=== PATIENT | female | born 1980 | race Caucasian/White ===

== ENCOUNTER 2016-12-07 09:48 | Emergency (ER) | payer MEDICARE, MEDICAID ==
[2016-12-07] MEDS ORDERED: IOPAMIDOL 300 (61%) 150 ML VIAL IV ONE (09:49)
[2016-12-07 10:39] LABS: BASO % 0.1 % (0.2-1.0); HEMATOCRIT 44.7 % (37.0-47.0); HEMOGLOBIN 14.4 gm/l (12.0-16.0); IMM NEUT # 0.3 K/mm3 (0-0.2); IMM NEUT% 1.5 % (0-1); LYMPH % 10.9 % (15-45); MEAN CELL VOLUME 87.1 fl (81.0-99.0); MEAN CORPUSCULAR HEMOGLOBIN 28.1 pg (27.0-31.0); MEAN CORPUSCULAR HGB CONC 32.2 g/dl (33.0-37.0); MEAN PLATELET VOLUME 10.4 fl (7.4-10.4); MONO # 0.6 (0.0-0.8); MONO % 3.4 % (4-12); NEUT % 84.1 % (43-75); PLATELET COUNT 427 K/mm3 (130-400); RED CELL DISTRIBUTION WIDTH 15.7 % (11.5-14.5)
[2016-12-07] MEDS ORDERED: ONDANSETRON 4 MG/2ML 2 ML VIAL ONE (10:51)
[2016-12-07] MEDS ORDERED: LACTATED RINGERS 1,000 ML ONE ×2 (10:52→12:24)
[2016-12-07] MEDS ORDERED: MORPHINE SULFATE 4 MG/ML SYRINGE ONE (10:52)
[2016-12-07 12:20] LABS: ALB/GLOB RATIO 1.3 (>1.0); ALBUMIN 4.4 gm/dL (3.5-5.7); CALCIUM 10.1 mg/dL (8.6-10.3)
[2016-12-07] MEDS ORDERED: PROCHLORPERAZINE 5 MG/ML 2 ML VIAL ONE (12:24)
[2016-12-07] MEDS ORDERED: DIPHENHYDRAMINE HCL 50 MG/1 ML VIAL ONE (12:24)
[2016-12-07] MEDS ORDERED: FENTANYL 100 MCG/2 ML VIAL ONE (12:25)
--- NOTE | 2016-12-07 13:41 | CT ---
CT ABDOMEN AND PELVIS WITH CONTRAST HISTORY: Abdominal pain, nausea and vomiting. TECHNIQUE: Following intravenous administration of 125 mL Isovue-300, contiguous axial images were acquired from the lung bases to the ischial tuberosities. Oral contrast was not administered. COMPARISON: 12/02/2014. FINDINGS: LUNG BASES: No gross airspace consolidation or pleural effusion. LIVER: No focal lesion. Minor fatty infiltration along the falciform ligament. SPLEEN: No focal lesion. Stomach: Moderate hiatal hernia, increased in size over the interval. PANCREAS: No mass effect or inflammatory change. ADRENAL GLANDS: No mass effect. KIDNEYS: Cortical scarring at the right upper renal pole. No focal renal mass effect or collecting system dilatation. GALLBLADDER: Surgically absent. BOWEL: Moderate fecal loading. Limited assessment of the distal colon due to decompression. No abnormal small bowel dilatation. Minor features of sigmoid diverticulosis without diverticulitis. APPENDIX: Not seen. PELVIC ORGANS: No gross mass effect. FREE FLUID: No gross free fluid identified. ABDOMINOPELVIC LYMPH NODES: No abnormally enlarged lymph nodes identified. ABDOMINAL AORTA: Normal caliber. OSSEOUS STRUCTURES: No grossly destructive lesions. SOFT TISSUES: Minimal fatty soft tissue stranding seen at right-sided periumbilical soft tissues. IMPRESSION: 1. Noninflammatory, nonobstructive appearance of bowel. Minor changes of colonic diverticulosis without features of diverticulitis. 2. Status post cholecystectomy and appendectomy. 3. Moderate hiatal hernia, mildly increased in prominence over the interval. 4. Right renal cortical scarring of mild extent. Results were electronically transmitted to the electronic medical record at 12/07/2016 at 1337 hours.
[2016-12-07] MEDS ORDERED: DIAZEPAM 5 MG/ML SYRINGE 2 ML ONE (14:02)
== END 2016-12-07 14:31 | disposition home or self-care (01) ==
LOC: ED 09:48
DX: R10.9 Unspecified abdominal pain (principal); R11.10 Vomiting, unspecified; D72.829 Elevated white blood cell count, unspecified
CPT/HCPCS: 83690; 84703; 85025; 80053; 74177; 96375 ×5; 99284 ×2; 96374; 96361 ×3; J1200; J0780; J3010; J2270; J3360; J2405; J7120 ×2; Q9967

== ENCOUNTER 2017-01-13 09:24 | Emergency (ER) | payer MEDICARE, MEDICAID ==
[2017-01-13] MEDS ORDERED: LORAZEPAM 2 MG/ML 1ML SDV ONE ×2 (09:50→11:01)
[2017-01-13] MEDS ORDERED: ONDANSETRON 4 MG ODT TAB ONE (09:50)
[2017-01-13] MEDS ORDERED: LACTATED RINGERS 1,000 ML ONE (09:54)
[2017-01-13] MEDS ORDERED: ONDANSETRON 4 MG/2ML 2 ML VIAL ONE ×2 (09:54→10:14)
[2017-01-13] MEDS ORDERED: PROMETHAZINE HCL 25 MG/ML VIAL ONE (11:01)
[2017-01-13] MEDS ORDERED: DIPHENHYDRAMINE HCL 50 MG/1 ML VIAL ONE (11:01)
[2017-01-13] MEDS ORDERED: HYDROMORPHONE HCL 0.5 MG/0.5 ML SYRINGE ONE ×2 (11:51→13:40)
[2017-01-13] MEDS ORDERED: HALOPERIDOL LACTATE 5 MG/1 ML AMP ONE (11:51)
[2017-01-13 22:10] LABS: HEMATOCRIT 44.6 % (37.0-47.0); HEMOGLOBIN 14.2 gm/l (12.0-16.0); IMM NEUT% 0.5 % (0-1); MEAN CELL VOLUME 87.1 fl (81.0-99.0); MEAN CORPUSCULAR HEMOGLOBIN 27.7 pg (27.0-31.0); MEAN CORPUSCULAR HGB CONC 31.8 g/dl (33.0-37.0); MEAN PLATELET VOLUME 8.7 fl (7.4-10.4); PLATELET COUNT 504 K/mm3 (130-400); RED CELL DISTRIBUTION WIDTH 15.9 % (11.5-14.5)
[2017-01-13 22:11] LABS: EOS % 1.3 % (0.9-2.9); LYMPH % 55.3 % (15-45); MONO % 7.2 % (4-12)
[2017-01-13 22:12] LABS: ABSOLUTE NEUTROPHIL COUNT 5.3 K/mm3 (1.8-7.7); BAND 0 % (0-10); BASO # 0.1 K/mm3 (0.0-0.2); BASO % 0.7 % (0.2-1.0); BASOPHIL 1 % (0-1); EOS # 0.2 (0.0-0.5); EOSINOPHIL 1 % (1-3); IMM NEUT # 0.1 K/mm3 (0-0.2); LYMPH # 8.4 (1.0-4.8); LYMPHOCYTE 40 % (15-45); MONO # 1.1 (0.0-0.8); MONOCYTE 3 % (4-12); NEUTROPHILS 30 % (43-75); TOTAL CELLS COUNTED 100
[2017-01-13 22:13] LABS: ATYPICAL LYMPHOCYTE 25 %; ORDER PATH REVIEW YES; PLATELET ESTIMATE NORMAL (NORMAL); SPECIFIC GRAVITY 1.015 (1.001-1.030); URINE APPEARANCE CLEAR; URINE COLOR YELLOW; URINE GLUCOSE (UA) NEGATIVE (NEGATIVE); URINE PROTEIN NEGATIVE (NEGATIVE)
[2017-01-13 22:14] LABS: URINE BILIRUBIN NEGATIVE (NEGATIVE); URINE BLOOD NEGATIVE (NEGATIVE); URINE LEUKOCYTE ESTERASE NEGATIVE (NEGATIVE); URINE NITRITE NEGATIVE (NEGATIVE); URINE UROBILINOGEN NEGATIVE (0-1 mg/dl)
[2017-01-13 22:15] LABS: HCG,QUALITATIVE URINE NEGATIVE
[2017-01-13 22:16] LABS: ALB/GLOB RATIO 1.4 (>1.0); ALBUMIN 4.5 gm/dL (3.5-5.7)
== END 2017-01-13 14:04 | disposition home or self-care (01) ==
LOC: ED 09:24
DX: R10.9 Unspecified abdominal pain (principal); R11.2 Nausea with vomiting, unspecified
CPT/HCPCS: 83690; 81025; 85025; 80053; 81003; 96375 ×4; 99283; 96376; 96374; 99284; J2060 ×2; J1200; J1630; J2550; J2405 ×2; J7120; A9270; J1170 ×2

== ENCOUNTER 2017-01-15 07:55 | Emergency (ER) | payer MEDICARE, MEDICAID ==
[2017-01-15] MEDS ORDERED: SODIUM CHLORIDE 0.9% 1,000 ML ONE ×3 (09:10→12:40)
[2017-01-15] MEDS ORDERED: ONDANSETRON 4 MG/2ML 2 ML VIAL ONE (09:10)
[2017-01-15] MEDS ORDERED: MORPHINE SULFATE 4 MG/ML SYRINGE ONE (09:11)
[2017-01-15] MEDS ORDERED: DIPHENHYDRAMINE HCL 50 MG/1 ML VIAL ONE (09:11)
[2017-01-15] MEDS ORDERED: HALOPERIDOL LACTATE 5 MG/1 ML AMP ONE (09:11)
[2017-01-15] MEDS ORDERED: PANTOPRAZOLE SODIUM 40 MG VIAL IV ONE (09:11)
[2017-01-15] MEDS ORDERED: KETOROLAC TROMETHAMINE 30 MG/ML 1 ML VIAL ONE (09:11)
[2017-01-15] MEDS ORDERED: METHYLPRED SOD SUCCINATE 125 MG VIAL ONE (09:11)
[2017-01-15 09:51] LABS: ALB/GLOB RATIO 1.3 (>1.0); CALCIUM 9.3 mg/dL (8.6-10.3)
[2017-01-15 10:54] LABS: ABSOLUTE NEUTROPHIL COUNT 9.1 K/mm3 (1.8-7.7); BASO # 0.1 K/mm3 (0.0-0.2); BASO % 0.6 % (0.2-1.0); EOS # 0.2 (0.0-0.5); EOS % 1.1 % (0.9-2.9); HEMATOCRIT 38.9 % (37.0-47.0); HEMOGLOBIN 12.5 gm/l (12.0-16.0); IMM NEUT # 0.1 K/mm3 (0-0.2); IMM NEUT% 0.8 % (0-1); LYMPH # 3.7 (1.0-4.8); LYMPH % 26.2 % (15-45); MEAN CELL VOLUME 87.4 fl (81.0-99.0); MEAN CORPUSCULAR HEMOGLOBIN 28.1 pg (27.0-31.0); MEAN CORPUSCULAR HGB CONC 32.1 g/dl (33.0-37.0); MEAN PLATELET VOLUME 8.4 fl (7.4-10.4); MONO # 0.9 (0.0-0.8); MONO % 6.2 % (4-12); NEUT % 65.1 % (43-75); PLATELET COUNT 411 K/mm3 (130-400); RED CELL DISTRIBUTION WIDTH 15.5 % (11.5-14.5)
[2017-01-15] MEDS ORDERED: LORAZEPAM 2 MG/ML 1ML SDV ONE (10:59)
[2017-01-15 11:35] LABS: SPECIFIC GRAVITY 1.025 (1.001-1.030); URINE BILIRUBIN NEGATIVE (NEGATIVE); URINE BLOOD NEGATIVE (NEGATIVE); URINE GLUCOSE (UA) NEGATIVE (NEGATIVE); URINE LEUKOCYTE ESTERASE NEGATIVE (NEGATIVE); URINE NITRITE NEGATIVE (NEGATIVE); URINE PROTEIN NEGATIVE (NEGATIVE); URINE UROBILINOGEN NORMAL (0-1 mg/dl)
[2017-01-15 11:38] LABS: URINE APPEARANCE CLEAR; URINE COLOR YELLOW
[2017-01-15] MEDS ORDERED: HYDROCODONE/ACETAMINOPHEN 5/325MG TABLET ONE (12:40)
[2017-01-15] MEDS ORDERED: PROMETHAZINE HCL 25 MG/ML VIAL ONE (12:40)
[2017-01-15] MEDS ORDERED: HYDROCODONE BIT/ACETAMINOPHEN 10 MG/325 MG TAB PO ONE (13:00)
== END 2017-01-15 13:45 | disposition home or self-care (01) ==
LOC: ED 07:55
DX: E86.0 Dehydration (principal); R11.10 Vomiting, unspecified; E66.9 Obesity, unspecified; K58.9 Irritable bowel syndrome, unspecified; Z79.891 Long term (current) use of opiate analgesic; Z79.899 Other long term (current) drug therapy; Z88.8 Allergy status to other drugs, medicaments and biological substances